=== PATIENT | female | born 1960 | race Two or more races ===

== ENCOUNTER 2023-12-02 17:07 | Inpatient (IN) | payer MEDICAID, OTHER ==
[~2023-12-02] VITALS: Ht 157.5 cm; Wt 58.1 kg
[2023-12-02] MEDS: SODIUM CHLORIDE 0.9% 1,000 ML IV ONE (17:51)
[2023-12-02] MEDS: PANTOPRAZOLE 40 MG/10 ML VIAL INJ IV ONE (17:55)
[2023-12-02 17:57] VITALS: PULSE 84; RESP 19; O2SAT 96
[2023-12-02 18:29] LABS: Basophils # (auto) 0.1 10 ^3/uL (0-0.2); Basophils % (auto) 0.9 % (0.0-2.0); Eosinophils # (auto) 0.2 10 ^3/uL (0-0.8); Eosinophils % (auto) 1.9 % (0.0-7.0); Hematocrit 36.5 % (36.0-46.0); Hemoglobin 12.1 g/dL (12.2-16.2); Lymphocytes % (auto) 35.8 % (10.0-50.0); Mean Corpuscular Hemoglobin 29.6 pg (28.0-32.0); Mean Corpuscular Hgb Conc. 33.3 g/dL (32.0-36.0); Mean Corpuscular Volume 88.8 fL (80.0-100.0); Monocytes # (auto) 0.7 10 ^3/uL (0-1.3); Neutrophils # (auto) 4.4 10 ^3/uL (1.6-8.6); Neutrophils % (auto) 53.4 % (37.0-80.0); Nucleated Red Blood Cells % 0.1 %; Platelet Count (auto) 299 10^3/uL (140-450); Red Blood Cells 4.11 10^6/uL (4.0-5.20); Red Cell Distribution Width 13.7 % (11.8-14.3); White Blood Cell 8.3 10^3/uL (4.4-10.8)
[2023-12-02 18:52] LABS: Alanine Aminotransferase 22 U/L (7-40); Albumin 4.2 g/dL (3.2-4.8); Alkaline Phosphatase 115 U/L (46-116); Anion Gap 5 (5-15); Aspartate Aminotransferase 18 U/L (13-40); BUN/Creatinine Ratio 23.2 (10.0-20.0); Blood Urea Nitrogen 16 mg/dL (9-23); Calcium 9.9 mg/dL (8.7-10.4); Carbon Dioxide 26 mmol/L (20-31); Chloride 110 mmol/L (98-107); Glucose 83 mg/dL (74-106); INR 0.95 (0.9-1.15); Lipase 38 U/L (12-53); Partial Thromboplastin Time 26.9 SEC (24.5-34.5); Potassium 4.4 mmol/L (3.5-5.1); Prothrombin Time 10.1 sec (9.3-11.8); Sodium 141 mmol/L (136-145)
[2023-12-02 18:52] LABS: Amphetamine Screen, Urine Neg (NEGATIVE); Barbiturate Scree,Urine Neg (NEGATIVE); Benzodiazephine Screen, Urine Neg (NEGATIVE); Cocaine Screen, Urine Neg (NEGATIVE); Opiate Scree,Urine Neg (NEGATIVE)
[2023-12-02 18:53] LABS: Cannabinoid Screen, Urine Neg (NEGATIVE); Phencyclidine Screen, Urine Neg (NEGATIVE)
[2023-12-02 18:53] LABS: Bilirubin, Total 0.3 mg/dL (0.2-1.0); Total Protein 7.3 g/dL (5.7-8.2)
[2023-12-02 18:57] LABS: Urine Bacteria FEW /hpf (None Seen); Urine Blood 1+ /uL (Negative); Urine Clarity Clear (Clear); Urine Color Light-Yellow (Yellow); Urine Protein, UAD Negative (Negative); Urine Specific Gravity 1.019 (1.001-1.035); Urine Urobilinogen Normal (Negative); Urine WBC 5 /hpf (0 - 5)
[2023-12-02] MEDS: IOHEXOL 300 MG/ML 100ML BOTTLE IJ ONE (19:24)
[2023-12-02] MEDS ORDERED: MORPHINE SULFATE INJ 2 MG/ml SYRG IV PRN (21:30)
[2023-12-02] MEDS: cefTRIAXone 1GM/50ML D5W 50 ML IV ONE (22:41)
[2023-12-02] MEDS: hydrALAZINE HCL 20 MG/ML VL IV PRN (22:50)
[2023-12-02 23:41] VITALS: PULSE 98; RESP 18; O2SAT 96
[2023-12-03] VITALS (10 sets, daily range): BP systolic 126–159; BP diastolic 66–105; PULSE 57–105; RESP 14–19; TEMP 97.2–98.1; O2SAT 95–99
[2023-12-03] MEDS: LACTATED RINGER'S 1,000 ML IV ONE (00:39)
[2023-12-03] MEDS ORDERED: INFLUENZA TRIVALENT 2024-2025 0.5 ML INJ IM ONE (10:00)
[2023-12-03] MEDS: ACETAMINOPHEN 325 MG TAB PO ONE (10:33)
[2023-12-03] MEDS: PANTOPRAZOLE 40 MG/10 ML VIAL INJ IV SCH (10:33)
[2023-12-03 10:56] LABS: Basophils # (auto) 0.1 10 ^3/uL (0-0.2); Basophils % (auto) 0.9 % (0.0-2.0); Eosinophils # (auto) 0.1 10 ^3/uL (0-0.8); Eosinophils % (auto) 1.6 % (0.0-7.0); Hematocrit 38.8 % (36.0-46.0); Hemoglobin 13.1 g/dL (12.2-16.2); Lymphocytes % (auto) 22.6 % (10.0-50.0); Mean Corpuscular Hemoglobin 29.5 pg (28.0-32.0); Mean Corpuscular Hgb Conc. 33.7 g/dL (32.0-36.0); Mean Corpuscular Volume 87.4 fL (80.0-100.0); Monocytes # (auto) 0.6 10 ^3/uL (0-1.3); Neutrophils % (auto) 67.9 % (37.0-80.0); Platelet Count (auto) 296 10^3/uL (140-450); Red Blood Cells 4.44 10^6/uL (4.0-5.20); Red Cell Distribution Width 13.7 % (11.8-14.3); White Blood Cell 8.9 10^3/uL (4.4-10.8)
[2023-12-03 11:06] LABS: Chloride 109 mmol/L (98-107); Sodium 141 mmol/L (136-145)
[2023-12-03 11:07] LABS: Anion Gap 6 (5-15); Calcium 9.9 mg/dL (8.7-10.4); Carbon Dioxide 26 mmol/L (20-31)
[2023-12-03 11:12] LABS: BUN/Creatinine Ratio 11.5 (10.0-20.0); Blood Urea Nitrogen 7 mg/dL (9-23); Glucose 92 mg/dL (74-106)
[2023-12-03] MEDS ORDERED: SODIUM CHLORIDE LOCK 10 ML ONE (13:58)
[2023-12-03] MEDS: FLEET ENEMA(ADULT) 135 ML PR ONE (14:00)
[2023-12-03] MEDS: MIDAZOLAM HCL 5 MG/ML-1ML VIAL ONE (14:51)
[2023-12-03] MEDS: fentaNYL CITRATE 100 MCG/2 ML VL ONE (14:51)
[2023-12-03] MEDS: diphenhdrAMINE HCL 50 MG/1 ML VL ONE (14:51)
[2023-12-03 16:09] LABS: Erythrocyte Sedimentation Rate 31 mm/hr (0-20)
[2023-12-03] MEDS: cefTRIAXone 1GM/50ML D5W 50 ML IV SCH (22:10)
[2023-12-04 00:41] VITALS: BP 132/68; PULSE 60; RESP 14; TEMP 97.9; O2SAT 95
[2023-12-04 05:00] VITALS: BP 153/71; PULSE 65; RESP 14; TEMP 97.7; O2SAT 98
[2023-12-04 07:46] LABS: Basophils # (auto) 0.1 10 ^3/uL (0-0.2); Eosinophils # (auto) 0.2 10 ^3/uL (0-0.8); Eosinophils % (auto) 2.7 % (0.0-7.0); Hematocrit 35.5 % (36.0-46.0); Lymphocytes # (auto) 2.4 10 ^3/uL (0.4-5.4); Lymphocytes % (auto) 36.9 % (10.0-50.0); Mean Corpuscular Hemoglobin 29.9 pg (28.0-32.0); Mean Corpuscular Hgb Conc. 33.9 g/dL (32.0-36.0); Mean Corpuscular Volume 88.2 fL (80.0-100.0); Monocytes # (auto) 0.6 10 ^3/uL (0-1.3); Neutrophils # (auto) 3.2 10 ^3/uL (1.6-8.6); Neutrophils % (auto) 50.4 % (37.0-80.0); Platelet Count (auto) 265 10^3/uL (140-450); Red Blood Cells 4.03 10^6/uL (4.0-5.20); Red Cell Distribution Width 13.7 % (11.8-14.3); White Blood Cell 6.4 10^3/uL (4.4-10.8)
[2023-12-04 07:48] LABS: Anion Gap 5 (5-15); Calcium 9.3 mg/dL (8.7-10.4); Carbon Dioxide 26 mmol/L (20-31); Chloride 109 mmol/L (98-107); Potassium 4.1 mmol/L (3.5-5.1); Sodium 140 mmol/L (136-145)
[2023-12-04 07:53] LABS: Glucose 90 mg/dL (74-106)
[2023-12-04 07:54] LABS: BUN/Creatinine Ratio 14.7 (10.0-20.0); Blood Urea Nitrogen 10 mg/dL (9-23)
[2023-12-04 08:00] VITALS: PULSE 73; RESP 18; O2SAT 96
[2023-12-04 09:00] VITALS: BP 144/67; PULSE 73; RESP 15; TEMP 97.8; O2SAT 97
[2023-12-04 11:06] LABS: Anti-Nuclear Antibody Direct Negative (Negative)
[2023-12-04] MEDS ORDERED: CIPR-173 PO (12:15)
[2023-12-04 12:25] VITALS: BP 144/67; PULSE 73; RESP 16; TEMP 97.8; O2SAT 97
[2023-12-04 13:00] VITALS: BP 147/82; PULSE 73; RESP 16; TEMP 98; O2SAT 99
[2023-12-04] MEDS: INFLUENZA TRIVALENT 2024-2025 0.5 ML INJ IM ONE (13:32)
[2023-12-06 11:19] LABS: Folate (Folic Acid) 13.63 ng/mL (>5.38)
== END 2023-12-04 13:50 | disposition home or self-care (01) | DRG 254 ==
LOC: ER 17:09 → OVERFLOW 21:34 → WEST WING 23:32
PROVIDERS: ADMIT Internal Medicine Geriatric Medicine; ATTEND Internal Medicine Geriatric Medicine
PROC: 0DBN8ZZ Excision of Sigmoid Colon, Via Natural or Artificial Opening Endoscopic (ICD-10-PCS; principal; 2023-12-03 14:35)
DX: K62.1 Rectal polyp (principal); K57.30 Diverticulosis of large intestine without perforation or abscess without bleeding; K80.20 Calculus of gallbladder without cholecystitis without obstruction; N39.0 Urinary tract infection, site not specified; Z79.899 Other long term (current) drug therapy
CPT/HCPCS: 36415; 45338; 71045; 74177; 80048; 80053; 80307; 81001; 82270; 82306; 82607; 82746; 83036; 83605; 83690; 83986; 84443; 85025; 85048; 85610; 85652; 85730; 86038; 86141; 86850; 86900; 86901; 87045; 87086; 87427; 93005; G0378; J2250; J2470